=== PATIENT | female | born 2000 | race Caucasian/White ===

== ENCOUNTER 2023-10-08 12:17 | Emergency (ER) | payer SELFPAY ==
--- NOTE | ~2023-10-08 | US_ITS ---
EXAMINATION: US OB <= 14 weeks fetus INDICATION: vaginal bleeding, 8wks TECHNIQUE: Sonography of the pelvis was performed by transabdominal and transvaginal techniques. COMPARISON: None. RESULT: Uterus: 11.2 x 7.5 x 10.7 cm. Anteverted. Homogenous myometrium. Intrauterine gestational sac: Single present. Mean Sac Diameter: 4.62 cm, corresponding gestational age 10 week 1 days. Yolk sac: 0.5 cm . Embryo: Single present. [place] rump length: 2.20 cm, corresponding gestational age 8 weeks, 6 days. Gestational heart rate: 0 bpm. Subgestational hematoma: Absent . Right ovary: 3.6 x 1.6 x 2.8 cm. Vascular flow is present. No adnexal mass. Left ovary: 2.6 x 2.3 x 1.8 cm. Vascular flow is present. No adnexal mass. Pelvis free fluid: None. IMPRESSION: Single intrauterine gestation with no heart motion detected. Estimated Gestational Age: 8 weeks, 6 days by crown rump length. These findings are consistent with failure. Reviewed, dictated and finalized at location K.
[2023-10-08 12:31] VITALS: BP 102/63; PULSE 81; RESP 16; TEMP 36.6; O2SAT 100
--- NOTE | 2023-10-08 14:45 | PC.NURSE ---
Pt to U/S via w/c at this time.
[2023-10-08 15:04] LABS: Basophils Percent Auto 0.4 % (0.2-1.2); Eosinophils Percent Auto 0.3 % (0-4.4); Hemoglobin 10.9 g/dL (12.0-15.0); Immature Granulocyte Absolute 0.03 K/mm3 (0.00-0.031); Immature Granulocyte Percent A 0.3 % (0-0.5); Lymphocytes Absolute Auto 1.95 K/mm3 (0.9-3.2); Lymphocytes Percent Auto 21.2 % (18.3-44.2); Mean Corpuscular HGB Conc 32.1 g/dl (32-36); Mean Corpuscular Hemoglobin 24.6 pg (26-34); Mean Corpuscular Volume 76.7 fl (80-100); Mean Platelet Volume 11.1 fl (7.4-10.4); Monocytes Absolute Auto 0.7 K/mm3 (0.1-0.6); Monocytes Percent Auto 7.2 % (2.6-8.5); Neutrophils Absolute Auto 6.5 K/mm3 (1.3-6.7); Neutrophils Percent Auto 70.6 % (45.5-73.1); Platelet Count Result 262 k/mm3 (150-375); Red Blood Count 4.43 M/mm3 (4.2-5.4); Red Cell Distribution Width 17.9 % (11.5-14.5); White Blood Count 9.2 K/mm3 (4.5-10.0)
[2023-10-08 15:08] LABS: INR 1.1
[2023-10-08 15:28] LABS: Alanine Aminotransferase 13 U/L (6-35); Albumin Level 4.4 g/dL (3.5-5.1); Alkaline Phosphatase 37 U/L (38-126); Anion Gap 11 mmol/L (4-12); Aspartate Amino Transferase 20 U/L (14-36); Bilirubin,Total 0.5 mg/dL (0.2-1.3); Blood Urea Nitrogen 4 mg/dL (7-17); Calcium 9.2 mg/dL (8.4-10.2); Carbon Dioxide 21 mmol/L (22-30); Chloride 103 mmol/L (98-107); Estimated CRCL calculation 113 ml/min; Estimated Glomerular Filt Rate > 60; Glucose 95 mg/dL (65-110); Potassium 3.7 mmol/L (3.4-5.0); Sodium 135 mmol/L (137-145)
--- NOTE | 2023-10-08 15:31 | ED.GENADULT ---
HPI - General Adult General Chief complaint: Vaginal Bleeding Stated complaint: 8 wks preg, cramping Time Seen by Provider: 10/08/23 14:15 History of Present Illness HPI narrative: Enmanuel Franco is a 23 y/o who presents with reports of having LMP early August she started to have spotting the past 3 days, she states light spotting today and the bleeding has stopped now. She states that she has had some lower abdominal cramping/ pain the past few days as well. Related Data Allergies Allergy/AdvReac Type Severity Reaction Status Date / Time No Known Allergies Allergy Verified 10/08/23 12:33 Review of Systems Review of Systems: All systems reviewed & are unremarkable except as noted in HPI and below Exam Narrative: GENERAL: Well-appearing, well-nourished, and in no acute distress. HEAD: Normocephalic, atraumatic. EYES: PERRLA and EOMI. ENT: Nares clear, no rhinorrhea or epistaxis. Mucous membranes moist. Oropharynx without tonsillar hypertrophy exudate or other lesions. NECK: Supple. No adenopathy or masses. No carotid bruits or JVD CHEST: Clear to auscultation. No respiratory distress. No wheezes rales or rhonchi HEART: Regular rate and rhythm. No murmur heard. Normal peripheral pulses. ABDOMEN: Soft, nontender, nondistended, normal active bowel sounds. EXTREMITIES: Normal range of motion. No edema. SKIN: Warm, dry, no rash. NEURO: No focal deficits. Alert and oriented x3. PSYCH: Normal mood and affect. Course Vital Signs Vital signs: Vital Signs Temperature 36.6 C 10/08/23 12:31 Pulse Rate 81 10/08/23 12:31 Respiratory Rate 16 10/08/23 12:31 Blood Pressure 102/63 10/08/23 12:31 Pulse Oximetry 100 10/08/23 12:31 Oxygen Delivery Room Air 10/08/23 12:31 Temperature 36.6 C 10/08/23 12:31 Pulse Rate 81 10/08/23 12:31 Respiratory Rate 16 10/08/23 12:31 Blood Pressure 102/63 10/08/23 12:31 Pulse Oximetry 100 10/08/23 12:31 Oxygen Delivery Room Air 10/08/23 12:31 Medical Decision Making MDM Narrative Medical decision making narrative: 23 y/o female estimates she is about 8 weeks her lmp was early August she states she has had some off and on spotting the past 3 days she says spotting this AM with no active bleeding and she is having some mild lower abdominal cramping- She has not followed up with OB yet as she was hoping to get a new OB from her last one. Concern for : threatened miscarriage/ ectopic / anemia / Plan to check labs/ ua/ beta quant/ type and screen to check RH and US transvaginal RH A Positive CBC -hgb 10.9, Hct 34 CMP NA 135, Bicarb 21, BUN 4, Creat 0.50, Alk phos 37 Beta [id number] US -Single intrauterine gestation with no heart motion detected. Estimated Gestational Age: 8 weeks, 6 days by crown rump length. These findings are consistent with failure. Updated pt on her results and plan to call OB for further direction/ follow up Discussed case with OBGYN Dr. Ro who recommends that pt follow up outpt for this in the next 1-2 days Patient left before I could formally d/c her and provide her with the OB to follow up, I did call her to provide her with this information and left a VM and called a second time before my shift ended She had expressed to the nurse that she was going to follow up with her friends OB and that she needed to leave get her kids. Medical Records Medical records reviewed: Yes I reviewed the external patient's medical records. Vital Signs Vital Signs: Vital Signs Temperature 36.6 C 10/08/23 12:31 Pulse Rate 81 10/08/23 12:31 Respiratory Rate 16 10/08/23 12:31 Blood Pressure 102/63 10/08/23 12:31 Pulse Oximetry 100 10/08/23 12:31 Oxygen Delivery Room Air 10/08/23 12:31 Temperature 36.6 C 10/08/23 12:31 Pulse Rate 81 10/08/23 12:31 Respiratory Rate 16 10/08/23 12:31 Blood Pressure 102/63 10/08/23 12:31 Pulse Oximetry 100 10/08/23 12:31 Oxy
--- NOTE | 2023-10-08 16:22 | PC.NURSE ---
Pt stating she needs to leave right at this moment due to having children at home. Pt was advised she was not up for discharge at this time, and pt insisted she had to leave. Pt was seen ambulating out of the ED to ED waiting area with steady gait.
== END 2023-10-08 16:27 | disposition home or self-care (01) ==
LOC: ANHED 15:14
PROVIDERS: Emergency Provider Nurse Practitioner Family
DX: O03.4 Incomplete spontaneous abortion without complication (principal)
CPT/HCPCS: 36415; 76801; 80053; 84702; 85025; 85610; 85730; 86850; 86900; 86901; 99284